=== PATIENT | male | born 1990 | race Caucasian/White ===

== ENCOUNTER 2018-08-15 10:54 | Emergency (ER) | payer OTHER ==
--- NOTE | 2018-08-15 11:25 | ER Document Report ---
HPI - HPI Pain Level: 3 Notes: Patient is a 28-year-old male with no significant past medical history who presents to the ED complaining of a stubbed toe off of a high-chair and associated pain to his third digit on the right foot status post injury yesterday. Patient states he has noticed bruising. He is still able to ambulate otherwise without difficulty. Patient requesting an x-ray. Denies drug allergies. Denies IV drug use. No other concerns or complaints. Denies any headache, fever, URI, sore throat, chest pain, palpitations, syncope, cough , shortness of breath, wheeze, dyspnea, abdominal pain, nausea/vomiting/diarrhea , urinary retention, dysuria, hematuria, numbness/tingling, muscle paralysis/ weakness, or rash. - ROS Systems Reviewed and Negative: Yes All other systems reviewed and negative Past Medical History - Social History Smoking Status: Never Smoker Family History: Reviewed & Not Pertinent Vertical Provider Document - CONSTITUTIONAL Agree With Documented VS: Yes Notes: PHYSICAL EXAMINATION: GENERAL: Well-appearing, well-nourished and in no acute distress. LUNGS: Breath sounds clear to auscultation bilaterally and equal. No wheezes rales or rhonchi. HEART: Regular rate and rhythm without murmurs, rubs, gallops. Musculoskeletal: Lt foot/ankle: FROM to passive/active. Strength 5+/5. N/V intact distal. + ecchymosis to the distal 3rd digit w/o subungual hematoma or nail involvement. + associated tenderness. No other bony tenderness to the foot/ankle. Achilles intact. Extremities: No cyanosis, clubbing, or edema b/l. Peripheral pulses 2+. Capillary refill less than 3 seconds. NEUROLOGICAL: Normal speech, normal gait. Normal sensory, motor exams PSYCH: Normal mood, normal affect. SKIN: Warm, Dry, normal turgor, no rashes or lesions noted. - INFECTION CONTROL TRAVEL OUTSIDE OF THE [place] IN LAST 30 DAYS: No Course - Re-evaluation Re-evalutation: 08/15/18 12:22 Patient is an afebrile, well-hydrated, 28-year-old male who presents to the ED with Rt 3rd toe pain which I suspect to be a sprain vs contusion versus strain. Vitals are acceptable without any significant tachycardia, tachypnea, or hypoxia. PE is otherwise unremarkable for any neurovascular compromise, obvious tendon/ligament rupture, obvious fracture/dislocation, septic joint. X- ray was unremarkable for any acute pathology. Patient declined any Tylenol or ice. Patient is nontoxic-appearing. Patient is able to ambulate and weight- bear w/o difficulty. No other labs or imaging warranted at this time based on H &P. Conservative measures otherwise for symptoms. Recheck with your PCM in 3- 5 days. Consider consult orthopedics. Return to the ED with any worsening/ concerning symptoms otherwise as reviewed in discharge. Patient is in agreement. - Vital Signs Vital signs: Temp Pulse Resp BP Pulse Ox 98.5 F 83 16 132/92 H 97 08/15/18 11:01 08/15/18 11:01 08/15/18 11:01 08/15/18 11:01 08/15/18 11:01 Discharge - Discharge Clinical Impression: Toe pain, right Condition: Stable Disposition: HOME, SELF-CARE Additional Instructions: Rest, Ice, Compression, Elevation Tylenol/ibuprofen as needed Light stretches daily Strength exercises as able Moist heat and massage may help F/u with your PCP in 3-5 days for a recheck Consider consult(s) with Orthopedics/physical therapy for ongoing/worsening symptoms Return to the ED with any worsening symptoms and/or development of fever, headache, chest pain, palpitations, syncope, shortness of breath, trouble breathing, abdominal pain, n/v/d, muscle weakness/paralysis, numbness/tingling, swelling, redness, or other worsening symptoms that are concerning to you. Forms: Elevated Blood Pressure Referrals: [facility] [Provider Group] - Follow up as needed
--- NOTE | 2018-08-15 12:08 | RADIOLOGY REPORT (SQ) ---
EXAM DESCRIPTION: FOOT RIGHT COMPLETE COMPLETED DATE/TIME: 08/15/2018 11:56 am REASON FOR STUDY: Rt 3rd distal digit injury, bruising kicked a chair COMPARISON: None. NUMBER OF VIEWS: Three views. TECHNIQUE: AP, lateral and oblique radiographic images acquired of the right foot. LIMITATIONS: None. FINDINGS: MINERALIZATION: Normal. BONES: No acute fracture or dislocation. No worrisome bone lesions. JOINTS: No effusions. SOFT TISSUES: No soft tissue swelling. No foreign body. OTHER: No other significant finding. IMPRESSION: NEGATIVE STUDY OF THE RIGHT FOOT. NO RADIOGRAPHIC EVIDENCE OF ACUTE INJURY. TECHNICAL DOCUMENTATION: JOB ID: [id number] [employer]- All Rights Reserved Reading location - IP/workstation name: [email or web address]
[2018-08-15 12:43] VITALS: BP 132/68
== END 2018-08-15 12:42 | disposition home or self-care (01) ==
LOC: ER 10:54
DX: M79.674 Pain in right toe(s) (principal); W22.03XA Walked into furniture, initial encounter
CPT/HCPCS: 99283

== ENCOUNTER 2020-03-03 12:02 | Emergency (ER) | payer OTHER ==
--- NOTE | 2020-03-03 12:13 | ER Document Report ---
ED Medical Screen (RME) - General Chief Complaint: Chest Pain Stated Complaint: CHEST PAIN Time Seen by Provider: 03/03/20 12:09 Mode of Arrival: Ambulatory Information source: Patient Notes: 29-year-old male with history of epididymitis presents to the emergency department with complaints of sharp sternal chest pain that started prior to arrival while he was just sitting on the couch. He reports he became short of breath. Reports that short of breath is gone but still having chest pain 5 out of 5. Sternal wall tender to palpate. Denies history of cardiac disease. Denies family history of cardiac disease. Denies fever vomiting diarrhea. Denies IV drug use or cocaine use. [place]. Denies known COVID exposure. I have greeted and performed a rapid initial assessment of this patient. A comprehensive ED assessment and evaluation of the patient, analysis of test results and completion of the medical decision making process will be conducted by additional ED providers. TRAVEL OUTSIDE OF THE [place] IN LAST 30 DAYS: No - HPI Quality of pain: Sharp Severity: Severe Pain Level: 5 Associated Symptoms: Shortness of breath - Related Data Allergies/Adverse Reactions: No Known Allergies Allergy (Unverified 08/15/18 10:55) Past Medical History Renal/ Medical History: Denies: Hx Peritoneal Dialysis
[2020-03-03 12:30] LABS: ABSOLUTE EOSINOPHILS # (AUTO) 0.1 10^3/uL (0.0-0.6); ABSOLUTE LYMPHOCYTES (AUTO) 1.8 10^3/uL (0.5-4.7); ABSOLUTE MONOCYTES (AUTO) 0.3 10^3/uL (0.1-1.4); ABSOLUTE NEUT (AUTO) 2.4 10^3/uL (1.7-8.2); EOSINOPHILS % (AUTO) 2.2 % (0-6); LYMPHOCYTES % (AUTO) 39.1 % (13-45); MEAN CORPUSCULAR HEMOGLOBIN 31.5 pg (27.0-33.4); MEAN CORPUSCULAR HGB CONC 34.9 g/dL (32.0-36.0); MEAN CORPUSCULAR VOLUME 90 fl (80-97); MONOCYTES % (AUTO) 5.9 % (3-13); PLATELET COUNT 175 10^3/uL (150-450); RED BLOOD COUNT 5.09 10^6/uL (4.35-5.55); RED CELL DISTRIBUTION WIDTH 13.4 % (11.5-14.0); SEGMENTED NEUTROPHILS % (AUTO) 51.8 % (42-78); TOTAL CELLS COUNTED % (AUTO) 100 %; WHITE BLOOD COUNT 4.7 10^3/uL (4.0-10.5)
--- NOTE | 2020-03-03 12:36 | RADIOLOGY REPORT (SQ) ---
EXAM DESCRIPTION: CHEST 2 VIEWS IMAGES COMPLETED DATE/TIME: 03/03/2020 12:26 pm REASON FOR STUDY: chest pain COMPARISON: Caps EXAM PARAMETERS: NUMBER OF VIEWS: two views TECHNIQUE: Digital Frontal and Lateral radiographic views of the chest acquired. RADIATION DOSE: NA LIMITATIONS: none FINDINGS: LUNGS AND PLEURA: No opacities, masses or pneumothorax. No pleural effusion. MEDIASTINUM AND HILAR STRUCTURES: No masses or contour abnormalities. HEART AND VASCULAR STRUCTURES: Heart normal size. No evidence for failure. BONES: No acute findings. HARDWARE: None in the chest. OTHER: No other significant finding. IMPRESSION: NO ACUTE RADIOGRAPHIC FINDING IN THE CHEST. TECHNICAL DOCUMENTATION: JOB ID: [id number] 2010 [employer]- All Rights Reserved Reading location - IP/workstation name: [email or web address]
--- NOTE | 2020-03-03 12:38 | ER Document Report ---
ED Cardiac - General Chief Complaint: Chest Pain Stated Complaint: CHEST PAIN Time Seen by Provider: 03/03/20 12:09 Primary Care Provider: KIRILL KEITH [Primary Care Provider] - Follow up in 3-5 days Mode of Arrival: Ambulatory Notes: Patient is a 29-year-old male who presents emergency department with a chief complaint of chest pain. Patient states that his chest pain started about 45 minutes prior to arrival to the emergency department. He states that it is a sharp pain in the middle of his chest. Patient denies any smoking. Denies any family history of heart attack at a young age. Patient is currently being treated for epididymitis with Cipro and [place]. TRAVEL OUTSIDE OF THE [place] IN LAST 30 DAYS: No - Related Data Allergies/Adverse Reactions: No Known Allergies Allergy (Unverified 08/15/18 10:55) Past Medical History - General Information source: Patient - Social History Smoking Status: Unknown if Ever Smoked Chew tobacco use (# tins/day): Yes Frequency of alcohol use: None Drug Abuse: None Family History: Reviewed & Not Pertinent Patient has homicidal ideation: No Renal/ Medical History: Denies: Hx Peritoneal Dialysis Review of Systems - Review of Systems Notes: REVIEW OF SYSTEMS: CONSTITUTIONAL : Denies recent illness. Denies recent unintentional weight loss. Denies fever, chills, or sweats. EENT: Denies eye, ear, throat, or mouth pain, discharge, or symptoms. Denies nasal or sinus congestion. CARDIOVASCULAR: See HPI. RESPIRATORY: See HPI. GASTROINTESTINAL: Denies nausea, vomiting, and diarrhea. Denies abdominal pain. Denies constipation. GENITOURINARY: Denies difficulty urinating, burning, blood in urine, urgency or frequency. MUSCULOSKELETAL: Denies neck and back pain. Denies joint pain or swelling. SKIN: Denies rash, itchiness, or lesions HEMATOLOGIC : Denies easy bruising or bleeding. LYMPHATIC: Denies swollen, painful, enlarged glands. NEUROLOGICAL: Denies no numbness or tingling denies weakness. Denies headache. Denies altered mental status. Denies alteration in speech. PSYCHIATRIC: Denies stress, anxiety, alteration in sleep patterns, or depression. All other systems reviewed and negative. Physical Exam - Vital signs Vitals: Temp 97.6 F 03/03/20 12:02 - Notes Notes: PHYSICAL EXAMINATION: GENERAL: Appears well, healthy, well-nourished, no acute distress. HEAD: Normocephalic, atraumatic. EYES: PERRL, conjunctiva normal, all extraocular movements intact, sclera nonicteric ENT: Moist mucous membranes. NECK: Supple, no noticeable swelling, redness, rash. Normal range of motion. LUNGS: Equal breath sounds bilaterally and clear to auscultation. No wheezes rales or rhonchi. CARDIOVASCULAR: S1-S2, regular rate, regular rhythm. Radial pulses 2+, normal. ABDOMEN: Normoactive bowel sounds. Soft, nontender, no guarding, no rebound tenderness, and no masses palpated. EXTREMITIES: Normal strength and range of motion, no pitting or edema. No cyanosis. NEUROLOGICAL: Moves all extremities upon command. Strength 5/5 in all extremities. PSYCH: Normal mood, normal affect. SKIN: Warm, dry. No rash, lesions, ulcerations noted. Normal skin turgor. Course - Re-evaluation Re-evalutation: 03/03/20 15:20 CTA of the chest does not show a pulmonary emboli. Patient received DuoNeb treatment.Hematology is unremarkable with no leukocytosis or anemia noted. Chemistries are unremarkable. Troponin is negative. Patient is denying any chest pain. Lipase and BNP are normal. 03/03/20 16:13 Patient reevaluated and his lung sounds are not clear after receiving a DuoNeb treatment. I suspect that this is the reason why he is having his chest pain. Patient will be sent home with an albuterol inhaler with a spacer. Urinalysis ordered in triage is unremarkable. Urine tox is positive for opiates, but patient is currently on [place] for his epididymitis. He will follow-up with his primary care provider. Follow-up precautions were given. Verbal discharge instructions were given to the patient. They verbalized understanding. They are stable for discharge. - Vital Signs Vital signs: Temp Pulse Resp BP Pulse Ox 98.3 F 21 H 133/93 H 94 03/03/20 16:22 03/03/20 16:22 03/03/20 16:22 03/03/20 16:22 - Laboratory Result Diagrams: 03/03/20 12:20 03/03/20 12:20 Laboratory results interpreted by me: 03/03/20 12:20 Sodium 136.5 L Glucose 122 H - EKG Interpretation by Me Additional EKG results interpreted by me: 03/03/20 12:37 Next rhythm. Rate 87. CT 180; QRS 94; QT 348; QTc 419. No ST elevations or depressions noted. Normal R wave progression. Discharge - Discharge Clinical Impression: Chest pain Qualifiers: Chest pain type: unspecified Qualified Code(s): R07.9 - Chest pain, unspecified Condition: Stable Disposition: HOME, SELF-CARE Additional Instructions: You are seen today in the emergency department for chest pain. Your imaging and labs are reassuring. Use albuterol inhaler as needed for shortness of breath or difficulty breathing. Take cetirizine as ordered. Follow-up with your primary care provider in regards to this visit. Prescriptions: Cetirizine HCl [All Day Allergy] 10 mg PO DAILY #30 tablet Albuterol Sulfate [Proair HFA Inhalation Aerosol 8.5 gm MDI] 1 puff IH Q4 PRN #1 mdi PRN Reason: Inhaler, Assist Devices [Space Chamber Plus] 1 each MC Q4H PRN #1 spacer PRN Reason: [facility]errals: [facility] [[facility]] - Follow up in 3-5 days
[2020-03-03 12:47] LABS: ALBUMIN 4.6 g/dL (3.5-5.0); ALKALINE PHOSPHATASE 63 U/L (38-126); ANION GAP 8 (5-19); ASPARTATE AMINO TRANSFERASE 42 U/L (17-59); BILIRUBIN,DIRECT 0.1 mg/dL (0.0-0.4); BILIRUBIN,TOTAL 1.3 mg/dL (0.2-1.3); BLOOD UREA NITROGEN 15 mg/dL (7-20); CALCIUM 9.4 mg/dL (8.4-10.2); CARBON DIOXIDE 28 mmol/L (22-30); CHLORIDE 101 mmol/L (98-107); CREATINE KINASE 154 U/L (55-170); GLUCOSE 122 mg/dL (75-110); POTASSIUM 4.4 mmol/L (3.6-5.0); TOTAL PROTEIN 7.6 g/dL (6.3-8.2)
--- NOTE | 2020-03-03 14:36 | RADIOLOGY REPORT (SQ) ---
EXAM DESCRIPTION: CTA CHEST IMAGES COMPLETED DATE/TIME: 03/03/2020 2:24 pm REASON FOR STUDY: chest pain COMPARISON: None. TECHNIQUE: CT scan of the chest performed using helical scanning technique with dynamic intravenous contrast injection. Images reviewed with lung, soft tissue and bone windows. Reconstructed coronal and sagittal MPR images reviewed. Additional 3 dimensional post-processing performed to develop Maximal Intensity Projection images (NV P). All images stored on PACS. All CT scanners at this facility use dose modulation, iterative reconstruction, and/or weight based d osing when appropriate to reduce radiation dose to as low as reasonably achievable (ALARA). [facility]: Dose Right [facility]: CareDose [facility]: Dose Right [facility]: Teradose 4D [facility]: Quench CONTRAST TYPE AND DOSE: contrast/concentration: Isovue 350.00 mg/ml; Total Contrast Delivered: 68.0 ml; Total Saline Delivered: 80.0 ml Contrast bolus adequate for pulmonary arteries and aorta. RENAL FUNCTION: GFR > 60. RADIATION DOSE: CT Rad equipment meets quality standard of care and radiation dose reduction techniq ues were employed. CTDIvol: 3.3 - 15.8 mGy. DLP: 564 mGy-cm. . LIMITATIONS: None. FINDINGS: LUNGS AND PLEURA: No masses, infiltrates, or pneumothorax. No pleural effusions or pleura l calcifications. AORTA AND GREAT VESSELS: No aneurysm. Contrast bolus not optimized for the aorta. HEART: No pericardial effusion. Cardiomegaly. PULMONARY ARTERIES: No emboli visualized in the main pulmonary arteries or the segmental branches. HILAR AND MEDIASTINAL STRUCTURES: No identified masses or abnormal nodes. HARDWARE: None in the chest. UPPER ABDOMEN: No significant findings. Limited exam. THYROID AND OTHER SOFT TISSUES: No masses. No adenopathy. BONES: No acute or significant finding. 3D MIPS: Confirm above findings. OTHER: No other significant finding. IMPRESSION: No PE. No acute findings. COMMENT: Quality ID # [id number]: Final reports with documentation of one or more dose reduction techniques (e.g., Automated exposure control, adjustment of the mA and/or kV according to patient size, use of iterative reconstruction technique) TECHNICAL DOCUMENTATION: JOB ID: [id number] 2010 [employer]- All Rights Reserved Reading location - IP/workstation name: [email or web address]
[2020-03-03] MEDS ORDERED: IPRATROPIUM/ALBUTEROL 0.5-2.5 MG/3 ML AMPUL NEB ONE (14:50)
[2020-03-03 15:43] LABS: APPEARANCE,URINE CLEAR; BILIRUBIN,URINE NEGATIVE (NEGATIVE); COLOR,URINE STRAW; GLUCOSE, URINE NEGATIVE (NEGATIVE); KETONES,URINE NEGATIVE (NEGATIVE); LEUKOCYTE ESTERASE,URINE NEGATIVE (NEGATIVE); NITRITE,URINE NEGATIVE (NEGATIVE); PROTEIN,URINE NEGATIVE (NEGATIVE); URINE SPECIFIC GRAVITY 1.031; UROBILINOGEN,URINE NEGATIVE mg/dL (<2.0)
[2020-03-03 16:00] LABS: URINE AMPHETAMINES SCREEN NEGATIVE; URINE BARBITURATES SCREEN NEGATIVE; URINE BENZODIAZEPINES SCREEN NEGATIVE; URINE COCAINE SCREEN NEGATIVE; URINE MARIJUANA (THC) SCREEN NEGATIVE; URINE METHADONE SCREEN NEGATIVE; URINE PHENCYCLIDINE SCREEN NEGATIVE
[2020-03-03 16:33] VITALS: BP 133/93
--- NOTE | 2020-03-05 22:30 | EKG REPORT ---
SEVERITY:- NORMAL ECG - SINUS RHYTHM : Confirmed by: Dana Marvin 05-Mar-2020 22:29:59
== END 2020-03-03 16:32 | disposition home or self-care (01) ==
LOC: ER 12:02
DX: R07.9 Chest pain, unspecified (principal); R09.89 Other specified symptoms and signs involving the circulatory and respiratory systems; N45.1 Epididymitis
CPT/HCPCS: 93005; 94640; 99285; 36415; 82550; 83690; 85025; 80053; 81001; 84484; 80307; 83880; 71046; 71275; 93010; J7620

== ENCOUNTER 2020-03-12 16:21 | Emergency (ER) | payer OTHER ==
--- NOTE | 2020-03-12 17:58 | ER Document Report ---
ED General - General Chief Complaint: Testicular Pain Stated Complaint: TESTICULAR PAIN Time Seen by Provider: 03/12/20 17:34 Primary Care Provider: SAGAR,KIRILL [Primary Care Provider] - Follow up as needed TRAVEL OUTSIDE OF THE [place] IN LAST 30 DAYS: No - HPI Notes: Patient is a 29-year-old male who presents to the emergency department for evaluation of right testicular pain. He has had pain for the last several weeks. He has been seen at [facility] twice. He was diagnosed with epididymitis based on physical exam. He is never had a urinalysis or an ultrasound. He was placed on Cipro twice. He was given pain medication. He states the only time he does not have pain is when he has pain medication. He states his pain is worsened by stepping. He denies any fevers or chills. No nausea or vomiting. No penile discharge. No other lumps, bumps, sores in the area. He states he is in a sexually monogamous relationship with his . He has no history of STDs. No dysuria, hematuria, urinary frequency. He is having normal bowel movements. - Related Data Allergies/Adverse Reactions: No Known Allergies Allergy (Verified 03/12/20 17:39) Home Medications: amitriptyline, melatonin, gabapentin, colace, cipro, plexus slim, biocleanse, probio5. Past Medical History - General Information source: Patient - Social History Smoking Status: Former Smoker Chew tobacco use (# tins/day): No Frequency of alcohol use: Social Drug Abuse: None Family History: Reviewed & Not Pertinent Patient has homicidal ideation: No Neurological Medical History: Reports: Hx Seizures - 1episode at 6yo Renal/ Medical History: Denies: Hx Peritoneal Dialysis Past Surgical History: Reports: Hx Appendectomy, Hx Orthopedic Surgery - Rt 4th finger, Hx Testicular Surgery - vasectomy Review of Systems - Review of Systems Male Genitourinary: See HPI -: Yes All other systems reviewed and negative Physical Exam - Vital signs Vitals: Temp Pulse Resp BP Pulse Ox 98.2 F 82 18 130/84 H 98 03/12/20 16:24 03/12/20 16:24 03/12/20 16:24 03/12/20 16:24 03/12/20 16:24 - Notes Notes: Vital signs reviewed, please refer to chart. Head is normocephalic, atraumatic. Pupils equal round, reactive to light. Neck is supple without meningismus. Heart is regular rate and rhythm. Lungs are clear to auscultation bilaterally. Abdomen is soft, nontender, normoactive bowel sounds throughout. Extremities without cyanosis, clubbing. Posterior calves are nontender. Peripheral pulses are equal. Skin is warm and dry. Thank you Genital exam was performed with JAKOB Xiong, present in the room. Patient is uncircumcised. No urethral discharge, no visible sores. Bilateral testicles are descended. He is tender to palpation over the posterior aspect of the right testicle and over the epididymis. No inguinal hernias noted. Intact cremasteric reflex bilaterally. Course - Re-evaluation Re-evalutation: 03/12/20 20:20 Patient presents emergency department for evaluation of right-sided testicular pain. His pain is actually more inguinal, but I cannot appreciate any hernia. His laboratory investigations are unremarkable. His ultrasound failed to reveal any signs of epididymitis or testicular torsion. I talked to the patient at length. If he has a small inguinal hernia, besides this pain it is clinically insignificant. We talked at length about further follow-up with primary care, avoiding lifting greater than 5 pounds, and conservative measures. He voiced understanding. He is to follow-up with primary care, return to the ER with worsening or new concerning symptoms of any sort. - Vital Signs Vital signs: Temp Pulse Resp BP Pulse Ox 98.6 F 69 20 123/80 98 03/12/20 20:05 03/12/20 20:05 03/12/20 20:05 03/12/20 20:05 03/12/20 20:05 - Laboratory Laboratory results interpreted by me: 03/12/20 17:44 Urine Ascorbic Acid 40 H Discharge - Discharge Clinical Impression: Right inguinal pain, Right testicular pain Condition: Stable Disposition: HOME, SELF-CARE Instructions: Testicular Pain ([facility]) Additional Instructions: No clear cause was found for your pain today. You may have a small inguinal hernia. Recommend restricting lifting to 5 pounds or less. Tylenol or ibuprofen as needed for pain. Follow-up with primary care for further evaluation. Return to the emergency department with worsening or new concerning symptoms of any sort. Referrals: [facility] [[facility]] - Follow up as needed
[2020-03-12 18:30] LABS: APPEARANCE,URINE CLEAR; BILIRUBIN,URINE NEGATIVE (NEGATIVE); COLOR,URINE YELLOW; GLUCOSE, URINE NEGATIVE (NEGATIVE); KETONES,URINE NEGATIVE (NEGATIVE); LEUKOCYTE ESTERASE,URINE NEGATIVE (NEGATIVE); NITRITE,URINE NEGATIVE (NEGATIVE); PROTEIN,URINE NEGATIVE (NEGATIVE); URINE SPECIFIC GRAVITY 1.013; UROBILINOGEN,URINE NEGATIVE mg/dL (<2.0)
--- NOTE | 2020-03-12 19:19 | RADIOLOGY REPORT (SQ) ---
EXAM DESCRIPTION: U/S SCROTUM W/DOPPLER IMAGES COMPLETED DATE/TIME: 03/12/2020 7:07 pm REASON FOR STUDY: right testicular pain COMPARISON: None. TECHNIQUE: Static and realtime herman scale imaging of the scrotum and testes. Selected color Doppler and spectral images recorded to document blood flow. LIMITATIONS: None. FINDINGS: RIGHT: TESTICLE: The right testicle measures 3.6 x 3.2 x 2.1 cm, normal size. Normal echotexture. Normal b lood flow. No mass. EPIDIDYMIS: The head of the epididymis measures 1.1 x 0.9 x 0.8 cm. The tail of the epididymis is mildly prominent in size. No evidence for any significant increase in blood flow. HYDROCELE OR VARICOCELE: Varicocele. HERNIA OR EXTRA-TESTICULAR MASS: No. OTHER: No other significant finding. LEFT: TESTICLE: The left testicle measures 4.1 x 3.2 x 1.7 cm, normal size. Normal echotexture. Normal bl ood flow. No mass. EPIDIDYMIS: The head of the epididymis measures 1.2 x 1.1 x 0.8 cm. The tail of the epididymis is mildly prominent in size. No evidence for any significant increase in blood flow. HYDROCELE OR VARICOCELE: Varicocele. HERNIA OR EXTRA-TESTICULAR MASS: No. OTHER: No other significant finding. IMPRESSION: 1. NO EVIDENCE OF TESTICULAR MASS OR TORSION. 2. Bilateral varicoceles. 3. The tail of the epididymis bilaterally mildly prominent in size. No evidence for any significant increase in blood flow. TECHNICAL DOCUMENTATION: JOB ID: [id number] 2010 [employer]- All Rights Reserved Reading location - IP/workstation name: [email or web address]
[2020-03-12 19:58] LABS: CHLAM PCR NOT DETECTED (NOT DETECT)
[2020-03-12 20:32] VITALS: BP 134/77
== END 2020-03-12 20:33 | disposition home or self-care (01) ==
LOC: ER 16:21
DX: N50.811 Right testicular pain (principal); R10.9 Unspecified abdominal pain
CPT/HCPCS: 76870; 81001; 87491; 87591; 93976; 99284

== ENCOUNTER 2020-03-15 16:04 | Emergency (ER) | payer OTHER ==
--- NOTE | 2020-03-15 17:12 | ER Document Report ---
ED Medical Screen (RME) - General Chief Complaint: Groin Pain Stated Complaint: GROIN PAIN Time Seen by Provider: 03/15/20 16:57 Primary Care Provider: KIRILL EKITH [Primary Care Provider] - Follow up as needed TRAVEL OUTSIDE OF THE [place] IN LAST 30 DAYS: No - HPI Notes: 03/15/20 17:08 29-year-old male presents emergency room for complaints of right groin pain with concerns of a possible inguinal hernia. Patient states he has had off-and-on right groin pain for the last month, was initially seen at [facility] and they diagnosed him with epididymitis. He did have a follow-up testicular ultrasound on Thursday which did not show any epididymitis. the provider who saw him stated he might possibly have an inguinal hernia on the right. Patient does follow-up with the [place] and is unable to get in due to co-pay pandemic currently. Patient states he has had abdominal pain the last week after eating with right and left upper quandrant abdominal pain. Patient does report diarrhea this last week. Denies any fever chills, no nausea vomiting. No dysuria, testicular pain, no flank pain I have greeted and performed a rapid initial assessment of this patient. A comprehensive ED assessment and evaluation of the patient, analysis of test results and completion of the medical decision making process will be conducted by additional ED providers. PHYSICAL EXAMINATION: GENERAL: Well-appearing, well-nourished and in no acute distress. CV: s1, s2 regular LUNGS: No respiratory distress Musculoskeletal: Normal range of motion abd: RUQ, LLQ abd pain NEUROLOGICAL: Normal speech, normal gait. - Related Data Allergies/Adverse Reactions: No Known Allergies Allergy (Verified 03/12/20 17:39) Home Medications: Albuterol Past Medical History Neurological Medical History: Reports: Hx Seizures - 1episode at 6yo Renal/ Medical History: Denies: Hx Peritoneal Dialysis Past Surgical History: Reports: Hx Appendectomy, Hx Orthopedic Surgery - Rt 4th finger, Hx Testicular Surgery - vasectomy Physical Exam - Vital signs Vitals: Temp Pulse Resp BP Pulse Ox 98.3 F 75 16 121/83 98 03/15/20 16:30 03/15/20 16:30 03/15/20 16:30 03/15/20 16:30 03/15/20 16:30 Course - Vital Signs Vital signs: Temp Pulse Resp BP Pulse Ox 98.3 F 75 16 121/83 98 03/15/20 16:59 03/15/20 16:30 03/15/20 16:30 03/15/20 16:30 03/15/20 16:30 Doctor's Discharge - Discharge Referrals: [facility] [[facility]] - Follow up as needed
[2020-03-15 17:27] LABS: ABSOLUTE EOSINOPHILS # (AUTO) 0.1 10^3/uL (0.0-0.6); ABSOLUTE LYMPHOCYTES (AUTO) 1.6 10^3/uL (0.5-4.7); ABSOLUTE MONOCYTES (AUTO) 0.6 10^3/uL (0.1-1.4); ABSOLUTE NEUT (AUTO) 1.9 10^3/uL (1.7-8.2); BASOPHILS % (AUTO) 0.8 % (0-2); EOSINOPHILS % (AUTO) 2.5 % (0-6); HEMATOCRIT 47.7 % (37.9-51.0); HEMOGLOBIN 16.6 g/dL (13.5-17.0); MEAN CORPUSCULAR HGB CONC 34.7 g/dL (32.0-36.0); MEAN CORPUSCULAR VOLUME 89 fl (80-97); MONOCYTES % (AUTO) 14.9 % (3-13); PLATELET COUNT 173 10^3/uL (150-450); RED BLOOD COUNT 5.34 10^6/uL (4.35-5.55); RED CELL DISTRIBUTION WIDTH 13.2 % (11.5-14.0); SEGMENTED NEUTROPHILS % (AUTO) 44.8 % (42-78); TOTAL CELLS COUNTED % (AUTO) 100 %; WHITE BLOOD COUNT 4.2 10^3/uL (4.0-10.5)
--- NOTE | 2020-03-15 17:27 | ER Document Report ---
ED GI/ - General Chief Complaint: Groin Pain Stated Complaint: GROIN PAIN Time Seen by Provider: 03/15/20 16:57 Primary Care Provider: [facility] [Primary Care Provider] - Follow up as needed Notes: CHIEF COMPLAINT: Abdominal pain for 3 to 4 weeks HPI: 29-year-old male presenting to the emergency department complaining of a fairly constant lower abdominal pain over the last 3 to 4 weeks. Feels it is more prominent on the right side worse with sitting or movement. Patient states that he was placed on Prilosec recently by his PCP for upper abdominal discomfort after eating. Patient states that occasionally the pain feels like it radiates into the right testicle but states that he had completed 2 courses of Cipro for epididymitis and came in 4 days ago and had an ultrasound that he states was negative for epididymitis. No penile or testicular discomfort today. Patient has not had a fever or vomiting. Does report some diarrhea over the last 24 hours ROS: See HPI - all other systems were reviewed and are otherwise negative Constitutional: no fever Eyes: no drainage, no blurred vision ENT: no runny nose, no sore throat Cardiovascular: no chest pain Resp: no SOB, no cough GI: no vomiting, + diarrhea, + abdominal pain : no dysuria Integumentary: no rash Allergy: no hives Musculoskeletal: no extremity pain or swelling Neurological: no numbness/tingling, no weakness MEDICATIONS: I agree with the patient medications as charted by the RN. ALLERGIES: I agree with the allergies as charted by the RN. PAST MEDICAL HISTORY/PAST SURGICAL HISTORY: Reviewed and agree as charted by RN. SOCIAL HISTORY: Reviewed and agree as charted by RN. FAMILY HISTORY: No significant familial comorbid conditions directly related to patient complaint EXAM: Reviewed vital signs as charted by RN. CONSTITUTIONAL: Alert and oriented and responds appropriately to questions. Well-appearing; well-nourished HEAD: Normocephalic; atraumatic EYES: PERRL; Conjunctivae clear, sclerae non-icteric ENT: normal nose; no rhinorrhea; moist mucous membranes; pharynx without lesions noted, no uvula edema or deviation, no tonsillar hypertrophy, phonation normal NECK: Supple without meningismus; non-tender; no cervical lymphadenopathy, no masses CARD: RRR; no murmurs, no clicks, no rubs, no gallops; symmetric distal pulses RESP: Normal chest excursion without splinting or tachypnea; breath sounds clear and equal bilaterally; no wheezes, no rhonchi, no rales, pulse oximetry 97% on room air not hypoxic ABD/GI: Normal bowel sounds; non-distended; soft, mild generalized abdominal pain more focal across the lower abdomen and more focal in the right lower quadrant region, no rebound, no guarding; no palpable organomegaly or masses. BACK: The back appears normal and is non-tender to palpation, there is no CVA t enderness EXT: Normal ROM in all joints; non-tender to palpation; no cyanosis, no effusions, no edema SKIN: Normal color for age and race; warm; dry; good turgor; no acute lesions noted NEURO: Moves all extremities equally; Motor and sensory function intact PSYCH: The patient's mood and manner are appropriate. Grooming and personal hygiene are appropriate. MDM: 29-year-old male with lower abdominal discomfort. Had a normal testicular ultrasound 4 days ago. Urinalysis was normal at that time. Had no screening lab work done either by [facility] who placed patient on Cipro for epididymitis clinically or 4 days ago in the emergency department. Will obtain screening labs today. 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 TRAVEL OUTSIDE OF THE [place] IN LAST 30 DAYS: No - Related Data Allergies/Adverse Reactions: No Known Allergies Allergy (Verified 03/12/20 17:39) Home Medications: Albuterol Past Medical History - Social History Smoking Status: Unknown if Ever Smoked Family History: Reviewed & Not Pertinent Patient has homicidal ideation: No Neurological Medical History: Reports: Hx Seizures - 1episode at 6yo Renal/ Medical History: Denies: Hx Peritoneal Dialysis Past Surgical History: Reports: Hx Appendectomy, Hx Orthopedic Surgery - Rt 4th finger, Hx Testicular Surgery - vasectomy Physical Exam - Vital signs Vitals: Temp Pulse Resp BP Pulse Ox 98.3 F 75 16 121/83 98 03/15/20 16:30 03/15/20 16:30 03/15/20 16:30 03/15/20 16:30 03/15/20 16:30 Course - Re-evaluation Re-evalutation: 03/15/20 18:42 No acute distress, I discussed the evaluation results at length with the ana laura ent, CT imaging and lab work did not show acute abnormalities. Patient's urine from 4 days ago was completely normal. At this time will discharge home on Bentyl with referral to gastroenterology for further follow-up. Return instructions discussed - Vital Signs Vital signs: Temp Pulse Resp BP Pulse Ox 98.3 F 75 16 121/83 98 03/15/20 16:59 03/15/20 16:30 03/15/20 16:30 03/15/20 16:30 03/15/20 16:30 - Laboratory Result Diagrams: 03/15/20 17:10 03/15/20 17:10 Laboratory results interpreted by me: 03/15/20 03/15/20 17:10 17:10 Patrick % (Auto) 14.9 H ALT 59 H Discharge - Discharge Clinical Impression: Abdominal pain, bilateral lower quadrant Condition: Stable Disposition: HOME, SELF-CARE Additional Instructions: Your lab work and CT imaging today did not reveal an acute abnormality. Follow- up closely with gastroenterology and your primary care provider for reevaluation of your symptoms. If you develop fever greater than 101 or worsening symptoms return for reevaluation Prescriptions: Dicyclomine HCl [Bentyl 20 mg Tablet] 20 mg PO Q6H PRN #20 tablet PRN Reason: [facility]errals: [facility] [Primary Care Provider] - Follow up as needed CHITO RUSSELL MD [ACTIVE STAFF] - Follow up as needed
[2020-03-15 17:39] LABS: ALBUMIN 4.8 g/dL (3.5-5.0); ALKALINE PHOSPHATASE 64 U/L (38-126); ANION GAP 8 (5-19); ASPARTATE AMINO TRANSFERASE 32 U/L (17-59); BLOOD UREA NITROGEN 14 mg/dL (7-20); CALCIUM 9.5 mg/dL (8.4-10.2); CARBON DIOXIDE 29 mmol/L (22-30); CHLORIDE 101 mmol/L (98-107); GLUCOSE 93 mg/dL (75-110); POTASSIUM 4.2 mmol/L (3.6-5.0); TOTAL PROTEIN 7.8 g/dL (6.3-8.2)
--- NOTE | 2020-03-15 18:22 | RADIOLOGY REPORT (SQ) ---
EXAM DESCRIPTION: CT ABD/PELVIS WITH IV ONLY IMAGES COMPLETED DATE/TIME: 03/15/2020 6:08 pm REASON FOR STUDY: lower abd pain COMPARISON: None. TECHNIQUE: CT scan of the abdomen and pelvis performed using helical scanning technique with dynamic intravenous contrast injection. No oral contrast. Images reviewed with lung, soft tissue, and bone windows. Reconstructed coronal and sagittal MPR images reviewed. Delayed images for evaluation of the urinary system also acquired. All images stored on PACS. All CT scanners at this facility use dose modulation, iterative reconstruction, and/or weight based d osing when appropriate to reduce radiation dose to as low as reasonably achievable (ALARA). [facility]: Dose Right [facility]: CareDose [facility]: Dose Right [facility]: Teradose 4D [facility]: [employer] CONTRAST TYPE AND DOSE: contrast/concentration: Isovue 350.00 mg/ml; Total Contrast Delivered: 100.0 ml; Total Saline Delivered: 57.0 ml RENAL FUNCTION: BUN 14 creatinine 1 RADIATION DOSE: . LIMITATIONS: None. FINDINGS: LOWER CHEST: No significant findings. No nodules or infiltrates. LIVER: Normal size. No masses. No dilated ducts. SPLEEN: Normal size. No focal lesions. PANCREAS: No masses. No significant calcifications. No adjacent inflammation or peripancreatic fluid collections. Pancreatic duct not dilated. GALLBLADDER: No identified stones by CT criteria. No inflammatory changes to suggest cholecystitis. ADRENAL GLANDS: No significant masses or asymmetry. RIGHT KIDNEY AND URETER: No solid masses. No significant calcifications. No hydronephrosis or hyd roureter. LEFT KIDNEY AND URETER: No solid masses. No significant calcifications. No hydronephrosis or hydr oureter. AORTA AND VESSELS: No aneurysm. No dissection. Renal arteries, SMA, celiac without stenosis. RETROPERITONEUM: No retroperitoneal adenopathy, hemorrhage or masses. BOWEL AND PERITONEAL CAVITY: No masses or inflammatory changes. No free fluid or peritoneal masses. APPENDIX: Surgically absent. PELVIS: No mass. No free fluid. Normal bladder. ABDOMINAL WALL: No masses. No hernias. BONES: No significant or acute findings. OTHER: None IMPRESSION: NO SIGNIFICANT OR ACUTE FINDING IN THE ABDOMEN OR PELVIS ON CT SCAN WITH IV CONTRAST. TECHNICAL DOCUMENTATION: JOB ID: [id number] Quality ID # [id number]: Final reports with documentation of one or more dose reduction techniques (e.g., Au tomated exposure control, adjustment of the mA and/or kV according to patient size, use of iterative reconstruction technique) 2010 [employer]- All Rights Reserved Reading location - IP/workstation name: [email or web address]
[2020-03-15 18:59] VITALS: BP 121/68
== END 2020-03-15 18:59 | disposition home or self-care (01) ==
LOC: ER 16:04
DX: R10.84 Generalized abdominal pain (principal); R19.7 Diarrhea, unspecified; Z79.899 Other long term (current) drug therapy; Z87.438 Personal history of other diseases of male genital organs; Z90.49 Acquired absence of other specified parts of digestive tract
CPT/HCPCS: 36415; 74177; 76705; 80053; 83690; 85025; 99284

== ENCOUNTER 2020-07-19 07:53 | Day surgery (SDC) | payer OTHER ==
[2020-07-19 09:03] LABS: INTERNATIONAL RATION (INR) 0.94; PARTIAL THROMBOPLASTIN TIME 28.9 SEC (23.5-35.8); PROTHROMBIN TIME 12.7 SEC (11.4-15.4)
[2020-07-19 12:05] LABS: GLUCOSE,CSF 60 mg/dL (40-70); PROTEIN,CSF 52 mg/dL (12-60)
--- NOTE | 2020-07-19 12:07 | RADIOLOGY REPORT (SQ) ---
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 FLUOROSCOPY TIME: 0.6 minutes 1 Images saved to PACS. TECHNIQUE: Fluoroscopic guided lumbar puncture with opening and closing pressures. LIMITATIONS: None. PROCEDURE: After written consent and assessment were obtained, the patient was brought into the fluo roscopy room and placed prone on the table. The patient's lower back was prepped in a sterile fashion and an entry site was selected under live fluoroscopic guidance. The entry site was anesthetized wit h 1% lidocaine. A 20 gauge needle was advanced through the skin and into the thecal sac at the level of L 2 -L 3 . An opening pressure of 38 units was obtained. After approximately 18.5 ml of CSF was dr ained, a closing pressure of 13 units was obtained. The needle was removed and a sterile bandage was placed of the site. Specimens were sent to the lab for testing. A fluoroscopic spot image was saved t o PACS confirming level access. FINDINGS: Clear CSF, with elevated opening pressure. IMPRESSION: Lumbar puncture under fluoroscopy. No immediate complication. COMMENT: Patient medication list reviewed: Yes- Quality ID# [id number]:Eligible professional attests to doc umenting in the medical record they obtained, updated, or reviewed the patient's current medications. Quality ID 145: Final reports for procedures using fluoroscopy that document radiation exposure indic es, or exposure time and number of fluorographic images (if radiation exposure indices are not availa ble) TECHNICAL DOCUMENTATION: Job ID: [id number] 2010 [employer]- All Rights Reserved Reading location - IP/workstation name: [email or web address] [id number]
[2020-07-19 12:18] LABS: CSF TUBE NUMBER 3
[2020-07-19 12:19] LABS: APPEARANCE ALL TUBES CLEAR; COLOR ALL TUBES COLORLESS; CSF TOTAL VOLUME 18.5 CC; VOLUME TUBE 2 4.5 CC
[2020-07-19 12:26] LABS: RED BLOOD CELL,CSF 0 /uL (0-10); WHITE BLOOD CELL,CSF 1 /uL (0-5)
[2020-07-19 14:23] VITALS: BP 113/72
[2020-07-23 18:36] LABS: ALBUMIN SERUM 4.5 g/dL (4.1-5.2); CSF IGG INDEX 0.4 (0.0-0.7); IGG SYNTHESIS RATE CSF -5.2 mg/day (-9.9 TO +3); IGG/ALBUMIN RATIO CSF 0.08 (0.00-0.25); IMMUNOGLOBULIN G CSF 2.1 mg/dL (0.0-8.6)
== END 2020-07-19 13:10 | disposition home or self-care (01) ==
LOC: RAD 07:53
PROVIDERS: ATTEND Specialist
DX: H47.10 Unspecified papilledema (principal)
CPT/HCPCS: 36415; 62328; 82784; 82945; 84157; 85610; 85730; 87070; 87205; 89050

== ENCOUNTER 2020-07-21 12:34 | Emergency (ER) | payer OTHER ==
[2020-07-21] MEDS ORDERED: ONDANSETRON HCL INJ/PF 4 MG/2 ML SDV IV ONE (12:51)
[2020-07-21] MEDS ORDERED: NORMAL SALINE 1000 ML 1,000 ML IV ONE (12:52)
--- NOTE | 2020-07-21 12:54 | ER Document Report ---
ED Medical Screen (RME) - General Chief Complaint: Headache Stated Complaint: HEADACHE,POST LUMBAR PUNCTURE Time Seen by Provider: 07/21/20 12:48 Primary Care Provider: SAGAR,KIRILL [Primary Care Provider] - Follow up as needed TRAVEL OUTSIDE OF THE [place] IN LAST 30 DAYS: No - HPI Notes: 07/21/20 12:52 30-year-old male to the emergency department with complaints of worsening heada erika since he got a lumbar puncture 2 days ago. He states that he was sent for a lumbar puncture because he has been having a constant headache for about 2 months. His neurologist requested that he have 1 for papilledema. He has recently been started on Topamax 50 mg but has not really seen much benefit in it. He states when he was in interventional radiology that he had an opening pressure that was elevated so the radiologist decided to take off more fluid. He did lay down for about 2 hours after the procedure. Unfortunately, since then the headache has been significantly worse. He has had nausea, vomiting, photophobia, phonophobia. He states that he sneezed earlier in the day and it felt like his head was going to explode. He denies any fevers or chills. He denies any neck stiffness. I performed a brief medical screening exam on the patient determined that the patient needs further evaluation and management by main side provider. I have placed initial orders to help expedite care. - Related Data Allergies/Adverse Reactions: No Known Allergies Allergy (Verified 07/21/20 12:48) Past Medical History - Past Medical History Cardiac Medical History: Denies: Hx Coronary Artery Disease, Hx Heart Attack, Hx Hypertension Pulmonary Medical History: Denies: Hx Asthma, Hx Bronchitis, Hx COPD - NO BREATHING ISSUES; HAD ISOLATED EVENT AND RX ALBUTEROL, Hx Pneumonia Neurological Medical History: Reports: Hx Seizures - 1episode at 8yo, MEDICATED X2Y THEN DC'D. Denies: Hx Cerebrovascular Accident Renal/ Medical History: Denies: Hx Peritoneal Dialysis Musculoskeltal Medical History: Denies Hx Arthritis Past Surgical History: Reports: Hx Appendectomy, Hx Orthopedic Surgery - Rt 4th finger, Hx Testicular Surgery - vasectomy - Immunizations Hx Diphtheria, Pertussis, Tetanus Vaccination: Yes Physical Exam - Vital signs Vitals: Temp Pulse Resp BP Pulse Ox 97.4 F 78 20 132/84 H 98 07/21/20 12:39 07/21/20 12:39 07/21/20 12:39 07/21/20 12:39 07/21/20 12:39 Course - Vital Signs Vital signs: Temp Pulse Resp BP Pulse Ox 97.4 F 78 20 132/84 H 98 07/21/20 12:39 07/21/20 12:39 07/21/20 12:39 07/21/20 12:39 07/21/20 12:39 Doctor's Discharge - Discharge [facility]errals: [facility] [[facility] Care [facility]] - Follow up as needed
[2020-07-21 13:27] LABS: ABSOLUTE BASOPHILS # (AUTO) 0.1 10^3/uL (0.0-0.2); ABSOLUTE EOSINOPHILS # (AUTO) 0.1 10^3/uL (0.0-0.6); ABSOLUTE LYMPHOCYTES (AUTO) 1.9 10^3/uL (0.5-4.7); ABSOLUTE MONOCYTES (AUTO) 0.7 10^3/uL (0.1-1.4); ABSOLUTE NEUT (AUTO) 4.4 10^3/uL (1.7-8.2); EOSINOPHILS % (AUTO) 1.7 % (0-6); HEMATOCRIT 48.5 % (37.9-51.0); HEMOGLOBIN 16.8 g/dL (13.5-17.0); LYMPHOCYTES % (AUTO) 26.5 % (13-45); MEAN CORPUSCULAR HEMOGLOBIN 30.8 pg (27.0-33.4); MEAN CORPUSCULAR HGB CONC 34.6 g/dL (32.0-36.0); MEAN CORPUSCULAR VOLUME 89 fl (80-97); MONOCYTES % (AUTO) 9.3 % (3-13); PLATELET COUNT 222 10^3/uL (150-450); RED BLOOD COUNT 5.45 10^6/uL (4.35-5.55); RED CELL DISTRIBUTION WIDTH 13.5 % (11.5-14.0); SEGMENTED NEUTROPHILS % (AUTO) 61.5 % (42-78); TOTAL CELLS COUNTED % (AUTO) 100 %; WHITE BLOOD COUNT 7.2 10^3/uL (4.0-10.5)
[2020-07-21 13:43] LABS: ALKALINE PHOSPHATASE 71 U/L (38-126); ANION GAP 13 (5-19); ASPARTATE AMINO TRANSFERASE 28 U/L (17-59); BILIRUBIN,DIRECT 0.2 mg/dL (0.0-0.4); BILIRUBIN,TOTAL 0.9 mg/dL (0.2-1.3); BLOOD UREA NITROGEN 12 mg/dL (7-20); CALCIUM 9.5 mg/dL (8.4-10.2); CARBON DIOXIDE 21 mmol/L (22-30); CHLORIDE 105 mmol/L (98-107); GLUCOSE 118 mg/dL (75-110); POTASSIUM 3.7 mmol/L (3.6-5.0); TOTAL PROTEIN 8.2 g/dL (6.3-8.2)
[2020-07-21] MEDS ORDERED: PROCHLORPERAZINE EDISYLATE INJ 10 MG/2 ML VIAL IV ONE (13:50)
[2020-07-21] MEDS ORDERED: KETOROLAC TROMETHAMINE INJ/PF 30 MG/1 ML SDV IV ONE (13:50)
--- NOTE | 2020-07-21 14:00 | ER Document Report ---
ED Headache - General Chief Complaint: Headache Stated Complaint: HEADACHE,POST LUMBAR PUNCTURE Time Seen by Provider: 07/21/20 12:48 Primary Care Provider: [facility] [Primary Care Provider] - Follow up as needed Mode of Arrival: Ambulatory Information source: Patient Notes: This 30-year-old man presents to the emergency department with a complaint of headache for greater than 1 month. He was seen and had a lumbar puncture performed 2 days ago. He states that the opening pressure was increased. He also complains of worsening headache since the LP and associated nausea no vomiting. He was placed on Topamax 50 mg a day by the neurologist. However he has not seen much improvement since that time. He presents today because he sneezed today and a headache was much worse as well and he denies fever or new symptoms. He has photophobia, circumferential headache, and rates the pain 8/10. TRAVEL OUTSIDE OF THE [place] IN LAST 30 DAYS: No - Related Data Allergies/Adverse Reactions: No Known Allergies Allergy (Verified 07/21/20 12:48) Past Medical History - Social History Smoking Status: Current Some Day Smoker Family History: Reviewed & Not Pertinent - Past Medical History Cardiac Medical History: Denies: Hx Coronary Artery Disease, Hx Heart Attack, Hx Hypertension Pulmonary Medical History: Denies: Hx Asthma, Hx Bronchitis, Hx COPD - NO BREATHING ISSUES; HAD ISOLATED EVENT AND RX ALBUTEROL, Hx Pneumonia Neurological Medical History: Reports: Hx Seizures - 1episode at 8yo, MEDICATED X2Y THEN DC'D. Denies: Hx Cerebrovascular Accident Renal/ Medical History: Denies: Hx Peritoneal Dialysis Musculoskeletal Medical History: Denies Hx Arthritis Past Surgical History: Reports: Hx Appendectomy, Hx Orthopedic Surgery - Rt 4th finger, Hx Testicular Surgery - vasectomy - Immunizations Hx Diphtheria, Pertussis, Tetanus Vaccination: Yes Review of Systems - Review of Systems Notes: Constitutional: Negative for fever. HENT: Negative for sore throat. Eyes: Negative for visual changes. Cardiovascular: Negative for chest pain. Respiratory: Negative for shortness of breath. Gastrointestinal: Negative for abdominal pain, vomiting or diarrhea. Genitourinary: Negative for dysuria. Musculoskeletal: Negative for back pain. Skin: Negative for rash. Neurological: +headache 10 point ROS negative except as marked above and in HPI. Physical Exam - Vital signs Vitals: Temp Pulse Resp BP Pulse Ox 97.4 F 78 20 132/84 H 98 07/21/20 12:39 07/21/20 12:39 07/21/20 12:39 07/21/20 12:39 07/21/20 12:39 - Notes Notes: PHYSICAL EXAMINATION: Physical Exam: General: Well-nourished well-developed 30-year-old male in no acute distress HEENT: NC/AT, pupils equal round and reactive to light, MM moist,nares clear, oropharynx clear, airway patent Neck: supple, no adenopathy, no masses. Good range of motion Lungs: clear, no wheezing, no rales no rhonchi CVS: Regular rate and rhythm no murmur gallop or rub Abdomen: Soft, active, nontender, no masses, no hepatosplenomegaly Ext: No edema, clubbing or cyanosis. Neuro: Alert and responsive, moving all 4 extremities on command, cranial nerves intact, no focal findings Skin: Intact no open lesions, no rash Course - Re-evaluation Re-evalutation: 07/21/20 15:52 She notes an improvement in headache after Compazine 5 mg IV and Toradol 15 mg IV. His nausea has resolved and he states that he feels ready to go home. He has follow-up scheduled with neurology on July 31, I have encouraged him to make sure he keeps that appointment. He is given a prescription for Zofran and a prescription for Toradol tablets 10 mg 1 tablet every 6-8 hours as needed for pain - Vital Signs Vital signs: Temp Pulse Resp BP Pulse Ox 97.4 F 78 20 132/84 H 98 07/21/20 12:39 07/21/20 12:39 07/21/20 12:39 07/21/20 12:39 07/21/20 12:39 - Laboratory Result Diagrams: 07/21/20 13:18 07/21/20 13:18 Laboratory results interpreted by me: 07/21/20 13:18 Carbon Dioxide 21 L Glucose 118 H Discharge - Discharge Clinical Impression: Headache Qualifiers: Headache type: unspecified Headache chronicity pattern: acute headache Intractability: not intractable Qualified Code(s): R51 - Headache Condition: Good Disposition: HOME, SELF-CARE Instructions: Antinausea Medication ([facility]), Headache ([facility]) Additional Instructions: You were seen in the emergency department today with a headache which and gotten worse 2 days after you had your lumbar puncture performed. Your symptoms resolved and and significantly improved with a low dose of Toradol and Zofran. I am discharging you with a prescription for Zofran controlled her nausea and Toradol tablets if needed for headache control. Please keep the appointment with your neurologist as scheduled. If your symptoms are worsening or if you have other concerns you may return to the emergency department for further evaluation and treatment HOME CARE INSTRUCTIONS & INFORMATION: Thank you for choosing us for your medical needs. We hope you're satisfied with the care you received. After you leave, you must properly care for your problem and, at the same time, observe its progress. Any condition can change. Some illnesses can change rapidly over hours or days. If your condition worsens, return to the Emergency Department or see your physician promptly. ABOUT YOUR X-RAYS AND EKG'S: If you had an EKG or X-rays taken, they have been read by the Emergency Physician. The X-rays and EKG's will also be read by a Rad iologist or Delivery Consultant within 24 hours. If discrepancies are noted, you will be notified by telephone. Please be certain the ED has a correct telephone number & address where you can be reached. Also, realize that some fractures or abnormalities do not show up on initial X-rays. If your symptoms continue, see your physician. ABOUT YOUR LABORATORY TEST: If you had laboratory tests, the results have been reviewed by the Emergency Physician. Some test results (for example cultures) may not be available for several days. You will be contacted if any test result shows you need additional treatment. Please be certain the ED has a correct telephone number and address where you can be reached. ABOUT YOUR MEDICATIONS: You will receive instructions on how to take your medicine on the prescription label you receive. Additional information may be provided by the Pharmacy. If you have questions afterwards, call the ED for clarification or further instructions. Some prescribed medications may cause drowsiness. Do not perform tasks such as driving a car or operating machinery without consulting your Pharmacist. If you feel you need a refill of pain medication, your condition will need re-evaluation. Please do not call for a refill of any medication. ABOUT YOUR SIGNATURE: Signature of this document acknowledges to followin. Understanding that you received emergency treatment and that you may be released before al medical problems are known or treated. Please be certain the ED has a correct phone number & address where you can be reached. 2. Acknowledgement that you will arrange for follow-up care as recommended. 3. Authorization for the Emergency Physician to provide information to your follow-up Physician in order to maximize your care. AT ANY TIME, IF YOUR SYMPTOMS CHANGE SIGNIFICANTLY OR WORSEN OR YOU DEVELOP NEW SYMPTOMS, RETURN TO THE EMERGENCY DEPARTMENT IMMEDIATELY FOR RE-EVALUATION. OUR GOAL IS TO PROVIDE EXCELLENT MEDICAL CARE! WE HOPE THAT WE HAVE MET YOUR EXPECTATIONS DURING YOUR EMERGENCY DEPARTMENT VISIT AND THAT YOU FEEL YOU HAVE RECEIVED EXCELLENT CARE! Prescriptions: Ondansetron [Zofran Odt 4 mg Tablet] 1 - 2 tab PO Q4HP PRN #10 tab.rapdis PRN Reason: Ketorolac Tromethamine [Toradol 10 mg Tablet] 10 mg PO Q6HP PRN #10 tablet PRN Reason: [facility]errals: [facility] [Primary Care [facility]] - Follow up as needed
[2020-07-21 16:40] VITALS: BP 133/70
== END 2020-07-21 16:36 | disposition home or self-care (01) ==
LOC: ER 12:34
DX: R51 Headache (principal); G97.1 Other reaction to spinal and lumbar puncture; F17.200 Nicotine dependence, unspecified, uncomplicated
CPT/HCPCS: 99284; 96361; 96374; 96375; 36415; 85025; 80053; J1885; J0780; J2405; J7030